=== PATIENT | female | born 1985 | race Caucasian/White ===

== ENCOUNTER → 2017-06-05 | Outpatient (CLI) | payer BC ==
[~2017-06-05] VITALS: Ht 165.1 cm; Wt 69.0 kg
[~2017-06-05] MED LIST: B-121000 MC2 PO; PRENATAL TABLE1 EAC3 PO; TUMS500 MG PO; TYLENOL REGULA325 MG PO
[2017-06-05 13:06] VITALS: BP 112/58
== END | disposition home or self-care (01) ==
LOC: IVINF 12:58
DX: Z31.82 Encounter for Rh incompatibility status (principal); Z3A.28 28 weeks gestation of pregnancy; Z67.11 Type A blood, Rh negative
CPT/HCPCS: J2790

== ENCOUNTER 2017-08-19 23:12 | Inpatient (IN) | payer BC ==
[~2017-08-19] VITALS: Ht 165.1 cm; Wt 74.1 kg
[2017-08-19 23:35] VITALS: BP 111/69
[2017-08-20] VITALS (40 sets, daily range): BP systolic 79–124; BP diastolic 43–88
[2017-08-20 02:14] LABS: HEMATOCRIT 34.9 % (36.0-46.0); MCH 30.4 PG (29.0-34.0); MCHC 34.1 G/DL (30.0-36.0); PLATELET COUNT 181 K/uL (156-360); RBC DIS.WIDTH-CV 12.9 % (11.8-14.6); RBC DIS.WIDTH-SD 41.7 % (39-53); RED BLOOD COUNT 3.92 M/uL (3.80-5.20); WHITE BLOOD COUNT 10.6 K/uL (4.1-10.2)
[2017-08-21 07:23] VITALS: BP 109/67
[2017-08-21] MEDS ORDERED: IBUPROFEN800 MG PO (10:54)
[2017-08-21 15:54] VITALS: BP 119/75
== END 2017-08-21 19:41 | disposition home or self-care (01) | DRG 775 ==
LOC: LDRP-OP 23:12 → 2WEST 23:13
PROVIDERS: Nurse Practitioner
PROC: 10907ZC Drainage of Amniotic Fluid, Therapeutic from Products of Conception, Via Natural or Artificial Opening (ICD-10-PCS; principal; 2017-08-19)
PROC: 10E0XZZ Delivery of Products of Conception, External Approach (ICD-10-PCS; 2017-08-20)
PROC: 00HU33Z Insertion of Infusion Device into Spinal Canal, Percutaneous Approach (ICD-10-PCS; 2017-08-20)
PROC: 3E0S3BZ Introduction of Anesthetic Agent into Epidural Space, Percutaneous Approach (ICD-10-PCS; 2017-08-20)
DX: O63.9 Long labor, unspecified (principal); Z37.0 Single live birth; Z3A.38 38 weeks gestation of pregnancy
CPT/HCPCS: 83030; 85027; 86850; 86870; 86900; 86901; 90686; C1755; G0378; J2790; J3010; J7120